=== PATIENT | male | born 1940 ===

== ENCOUNTER 2018-06-08 13:00 | Inpatient (IN) | payer OTHER ==
[~2018-06-08] VITALS: Ht 167.6 cm; Wt 71.7 kg
[2018-06-09] MEDS ORDERED: [UNRECOGNIZED DRUG - OTHER] PO (06:56)
[2018-06-09] MEDS ORDERED: OMEPRAZOLE20 MG PO (06:57)
[2018-06-09] MEDS ORDERED: [UNRECOGNIZED DRUG - OTHER] PO (06:57)
[2018-06-09] MEDS ORDERED: ZANTAC150 M3 PO (06:58)
[2018-06-09] MEDS ORDERED: FINOFIBRATE PO (06:58)
[2018-06-09] MEDS ORDERED: ATORVASTATIN CA10 MG PO (06:59)
[2018-06-09] MEDS ORDERED: VASOFLEX D1 CA1 EACH PO (06:59)
[2018-06-09] MEDS ORDERED: MULTIVITA PO (07:00)
[2018-06-09] MEDS ORDERED: COD LIVER OIL1 EACH PO (07:00)
[2018-06-09] MEDS ORDERED: PROBIOTIC250 MG PO (07:00)
[2018-06-15] MEDS ORDERED: PERCOCET 5-3251 EACH PO (15:54)
[2018-06-15] MEDS ORDERED: CLONAZEPAM0.5 MG PO (15:54)
[2018-06-15] MEDS ORDERED: COLACE100 MG PO (15:54)
== END 2018-07-15 05:46 | disposition expired | DRG 3 ==
LOC: SURG 13:00 → EDBD 06-15 05:10 → O/R 06-15 05:10 → OB/GYN 06-15 11:07 → O/R 06-15 11:13 → SURH 06-15 18:48 → SURG 06-15 19:29 → O/R 06-16 15:57 → ICU 06-17 19:33 → SURH 06-27 13:46 → ICU 06-27 15:14
PROVIDERS: Surgery; ADMIT Orthopaedic Surgery Orthopaedic Surgery of the Spine
PROC: 07DS0ZZ Extraction of Vertebral Bone Marrow, Open Approach (ICD-10-PCS; 2018-06-15)
PROC: 0RT30ZZ Resection of Cervical Vertebral Disc, Open Approach (ICD-10-PCS; 2018-06-15)
PROC: 4A12X4Z Monitoring of Cardiac Electrical Activity, External Approach (ICD-10-PCS; 2018-06-15)
PROC: 0RG20A0 Fusion of 2 or more Cervical Vertebral Joints with Interbody Fusion Device, Anterior Approach, Anterior Column, Open Approach (ICD-10-PCS; principal; 2018-06-15 12:30)
PROC: 5A1955Z Respiratory Ventilation, Greater than 96 Consecutive Hours (ICD-10-PCS; 2018-06-16)
PROC: 00CU0ZZ Extirpation of Matter from Spinal Canal, Open Approach (ICD-10-PCS; 2018-06-16)
PROC: 3E0F7GC Introduction of Other Therapeutic Substance into Respiratory Tract, Via Natural or Artificial Opening (ICD-10-PCS; 2018-06-16)
PROC: 0WJ60ZZ Inspection of Neck, Open Approach (ICD-10-PCS; 2018-06-16)
PROC: 0B110F4 Bypass Trachea to Cutaneous with Tracheostomy Device, Open Approach (ICD-10-PCS; 2018-06-16 14:00)
PROC: BW24ZZZ Computerized Tomography (CT Scan) of Chest and Abdomen (ICD-10-PCS; 2018-06-19)
PROC: BW2FZZZ Computerized Tomography (CT Scan) of Neck (ICD-10-PCS; 2018-06-19)
PROC: 03H833Z Insertion of Infusion Device into Left Brachial Artery, Percutaneous Approach (ICD-10-PCS; 2018-06-26)
PROC: 30233N1 Transfusion of Nonautologous Red Blood Cells into Peripheral Vein, Percutaneous Approach (ICD-10-PCS; 2018-06-30)
PROC: B246ZZZ Ultrasonography of Right and Left Heart (ICD-10-PCS; 2018-07-02)
PROC: 0DJ08ZZ Inspection of Upper Intestinal Tract, Via Natural or Artificial Opening Endoscopic (ICD-10-PCS; 2018-07-14)
DX: M47.12 Other spondylosis with myelopathy, cervical region (principal); J95.821 Acute postprocedural respiratory failure; J18.9 Pneumonia, unspecified organism; J80 Acute respiratory distress syndrome; M50.01 Cervical disc disorder with myelopathy, high cervical region; Z99.11 Dependence on respirator [ventilator] status; R65.10 Systemic inflammatory response syndrome (SIRS) of non-infectious origin without acute organ dysfunction; J98.11 Atelectasis; D62 Acute posthemorrhagic anemia; K92.1 Melena; M96.841 Postprocedural hematoma of a musculoskeletal structure following other procedure; I46.8 Cardiac arrest due to other underlying condition; B96.1 Klebsiella pneumoniae [K. pneumoniae] as the cause of diseases classified elsewhere; B96.5 Pseudomonas (aeruginosa) (mallei) (pseudomallei) as the cause of diseases classified elsewhere; E11.9 Type 2 diabetes mellitus without complications; I10 Essential (primary) hypertension; R13.19 Other dysphagia; D69.49 Other primary thrombocytopenia; K26.7 Chronic duodenal ulcer without hemorrhage or perforation; B37.9 Candidiasis, unspecified; B96.89 Other specified bacterial agents as the cause of diseases classified elsewhere